=== PATIENT | male | born 1975 | race Caucasian/White ===

== ENCOUNTER 2017-12-11 15:15 | Emergency (ER) | payer MEDICAID ==
--- NOTE | 2017-12-11 15:52 | ED ---
Back Pain - HPI Summary HPI Summary: Pt. is a 42 y/o who presents to the ER for back pain x 2-3 days. Pt. states on Sunday he was doing a lot of lifting and then developed low back pain that evening. Pt. states pain starts to low back, mostly on the left, and occasionally radiates ups spine and down bilateral legs. Pain is exacerbated by standing and twisting. He denies leg numbness, tingling or weakness. Denies bowel or bladder incontinence. No significant past medial hx. States he has been taking tylenol and motrin with no relief. Symptoms are mild in severity. - History of Current Complaint Chief Complaint: EDBackInjuryPain Stated Complaint: BACK PAIN Time Seen by Provider: 12/11/17 15:27 Hx Obtained From: Patient Pain Intensity: 10 - Allergies/Home Medications Allergies/Adverse Reactions: Allergies Allergy/AdvReac Type Severity Reaction Status Date / Time No Known Allergies Allergy Verified 12/11/17 16:04 PMH/Surg Hx/FS Hx/Imm Hx Previously Healthy: Yes Infectious Disease History: No Infectious Disease History: Denies: Traveled Outside the [place] in Last 30 Days - Family History Known Family History: Positive: Other - Noncontributory - Social History Occupation: Unemployed Lives: With Family Review of Systems Positive: Other - back pain Neurological: Negative Negative: Weakness, Paresthesia, Numbness All Other Systems Reviewed And Are Negative: Yes Physical Exam Triage Information Reviewed: Yes Vital Signs On Initial Exam: Initial Vitals Temp Pulse Resp BP Pulse Ox 96.9 F 71 18 136/92 96 12/11/17 15:17 12/11/17 15:17 12/11/17 15:17 12/11/17 15:17 12/11/17 15:17 Vital Signs Reviewed: Yes Appearance: Positive: Well-Appearing - Pt. sitting on bed in NAD. Moves around easily Skin: Positive: Warm, Dry Head/Face: Positive: Normal Head/Face Inspection Eyes: Positive: Normal, EOMI Neck: Positive: Supple Musculoskeletal: Positive: Other - 5/5 strength in bilateral LEs with flexion and dorsiflexion. Mild positive straight leg on the left. 2/4 patella DTRs. Neurological: Positive: Normal, CN Intact II-III Psychiatric: Positive: Affect/Mood Appropriate Diagnostics - Vital Signs Vital Signs Temp Pulse Resp BP Pulse Ox 09/18/18 15:17 96.9 F 71 18 136/92 96 - Laboratory Lab Statement: Any lab studies that have been ordered have been reviewed, and results considered in the medical decision making process. Back Pain Course/Dx - Course Course Of Treatment: Pt. presenting for back pain after lifting. He has no neuro deficits or evidence of cauda equina. No imaging ordered today. Rx for prednisone, ultram and flexeril sent to pharmacy. [facility] reviewed and no red flags. Advised to avoid heavy lifting, warm compresses. Close f.u with PCP. Return precautions discussed. Pt. understands and agrees with plan. - Diagnoses Differential Diagnosis/HQI/PQRI: Positive: Arthritis, Herniated Disc, Strain, Sprain Provider Diagnoses: Lumbar strain Discharge - Sign-Out/Discharge Documenting (check all that apply): Patient Departure - Discharge Plan Condition: Good Disposition: HOME Prescriptions: Cyclobenzaprine TAB* [Flexeril 10 MG TAB*] 10 mg PO TID PRN #9 tab PRN Reason: Pain RX: predniSONE TAB* [Deltasone TAB*] 50 mg PO DAILY #5 tab Tramadol HCl [Ultram] 50 mg PO Q6H #12 tablet MDD 4 tablets Patient Education Materials: Low Back Strain (ED) Referrals: No Primary Care Phys,NOPCP [Primary Care Provider] - [facility] [Outside] Additional Instructions: Schedule a follow up appointment with your PCP Take medications as directed Apply warm compresses to back Avoid heavy lifting Return to ER for increased pain, numbness/weakness to legs or for loss of bowel or bladder function - Billing Disposition and Condition Condition: GOOD Disposition: Home
[2017-12-11 18:45] VITALS: BP 140/73
== END 2017-12-11 17:20 | disposition home or self-care (01) ==
LOC: ED 15:15
DX: S39.012A Strain of muscle, fascia and tendon of lower back, initial encounter (principal); X50.9XXA Other and unspecified overexertion or strenuous movements or postures, initial encounter; Y92.9 Unspecified place or not applicable
CPT/HCPCS: 99282